=== PATIENT | female | born 1975 | race Hispanic/Latino ===

== ENCOUNTER 2022-11-03 17:21 | Emergency (ER) | payer OTHER ==
[~2022-11-03] VITALS: Ht 162.6 cm; Wt 108.9 kg
[2022-11-03 17:22] VITALS: BP 172/92
[2022-11-03] MEDS ORDERED: KETOROLAC 15MG/ML VIAL (15MG/ML) IM ONE (18:30)
[2022-11-03] MEDS ORDERED: CYCLOBENZAPRINE HCL 10 MG TABLET PO ONE (18:30)
[2022-11-03] MEDS ORDERED: TRAMADOL HCL 50 MG TABLET PO ONE (19:00)
[2022-11-03 19:26] LABS: APPEARANCE,URINE CLEAR (CLEAR); BILIRUBIN,URINE NEGATIVE (NEGATIVE); COLOR,URINE LIGHT-YELLOW (YELLOW); GLUCOSE, URINE (UA) NEGATIVE (NEGATIVE); KETONES,URINE NEGATIVE (NEGATIVE); LEUKOCYTE ESTERASE ,URINE NEGATIVE Leu/uL (NEGATIVE); NITRATE,URINE NEGATIVE (NEGATIVE); OCCULT BLOOD,URINE NEGATIVE (NEGATIVE); PH,URINE 5.5 (5.0-8.0); PROTEIN,URINE NEGATIVE (NEGATIVE); UROBILINOGEN,URINE 0.2 mg/dL (0.2-1.0)
[2022-11-03 19:29] LABS: BACTERIA,URINE FEW /HPF (None Seen); MUCUS,URINE RARE LPF (None Seen); SQUAMOUS EPITHELIAL CELL,UR FEW /HPF (0-2); YEAST,URINE BUDDING RARE /HPF (None Seen)
[2022-11-03] MEDS ORDERED: TRAMADOL HCL 50 MG TABLET ONE (19:37)
[2022-11-03] MEDS ORDERED: TRAM50TA4 PO (20:16)
== END 2022-11-03 20:41 | disposition home or self-care (01) ==
LOC: EDH 17:21
DX: S29.012A Strain of muscle and tendon of back wall of thorax, initial encounter (principal); Z90.49 Acquired absence of other specified parts of digestive tract; Z98.890 Other specified postprocedural states; X58.XXXA Exposure to other specified factors, initial encounter; Y93.89 Activity, other specified; Y92.89 Other specified places as the place of occurrence of the external cause; Y99.8 Other external cause status
CPT/HCPCS: 99285; 72128; 81001; 96372; J1885